=== PATIENT | female | born 1935 | race Caucasian/White ===

== ENCOUNTER 2017-12-08 13:52 | Day surgery (SDC) | payer MEDICARE, BC ==
[~2017-12-08] VITALS: Ht 160 cm; Wt 89.6 kg
[2017-12-08] VITALS (8 sets, daily range): BP systolic 128–139; BP diastolic 57–69
[~2017-12-08 13:52] MED LIST: AMIO200T57 PO; LOSA1TAB39 PO; METF-436 PO; METO-539 PO; POTA8CAP9 PO; RIVA20TA PO; ZOC40T PO
[2017-12-08] MEDS ORDERED: normal saline 1000ml 1,000 ML IV SCH (14:15)
[2017-12-08] MEDS ORDERED: LORazepam 0.5 MG tablet PO PRN (14:15)
[2017-12-08] MEDS ORDERED: diphenhydrAMINE 25mg capsule PO PRN (14:15)
[2017-12-08] MEDS ORDERED: ENOX40SY7 SQ (14:53)
[2017-12-08] MEDS ORDERED: ACET-2119 PO (14:53)
[2017-12-08] MEDS ORDERED: fentaNYL/PF 50MCG/1 ML 2ML syringe ONE (16:03)
[2017-12-08] MEDS ORDERED: midazolam 2 mg/2 ml injection ONE (16:03)
[2017-12-08] MEDS ORDERED: iohexol 350MG/ML 100ml bottle IV ONE (16:03)
[2017-12-08] MEDS ORDERED: LIDOcaine 1% w/EPI 1:100,000 30ml vial (MDV) ONE (16:03)
[2017-12-08] MEDS ORDERED: HYDROcodone/acetaminophen 5mg/325mg tablet PO PRN (17:55)
[2017-12-08] MEDS ORDERED: ondansetron/PF 4mg/2ml inj IV PRN (17:55)
[2017-12-08] MEDS ORDERED: OXAZEpam 15mg capsule PO PRN (17:55)
[2017-12-08] MEDS ORDERED: proCHLORperazine 10 MG/2 ml inj IV PRN (17:55)
[2017-12-08] MEDS ORDERED: HYDROcodone/acetaminophen 10/325mg tab PO PRN (17:55)
== END 2017-12-08 19:45 | disposition home or self-care (01) ==
LOC: SSTAY O 13:52
PROVIDERS: ATTEND Internal Medicine Interventional Cardiology
DX: I25.10 Atherosclerotic heart disease of native coronary artery without angina pectoris (principal); E11.22 Type 2 diabetes mellitus with diabetic chronic kidney disease; I12.9 Hypertensive chronic kidney disease with stage 1 through stage 4 chronic kidney disease, or unspecified chronic kidney disease; N18.3 Chronic kidney disease, stage 3 (moderate); E78.5 Hyperlipidemia, unspecified; I25.2 Old myocardial infarction; G47.33 Obstructive sleep apnea (adult) (pediatric); I08.0 Rheumatic disorders of both mitral and aortic valves; Z79.899 Other long term (current) drug therapy; Z95.5 Presence of coronary angioplasty implant and graft
CPT/HCPCS: 82948; 93005; 93458; 99152; A6257; C1769; J1644; J2250; J3010; J3490; J7030; Q0163; Q9967; A4620

== ENCOUNTER 2018-09-05 04:28 | Emergency (ER) | payer MEDICARE, BC ==
[~2018-09-05] VITALS: Ht 170.2 cm; Wt 90.9 kg
[~2018-09-05 04:28] MED LIST changes: +ACET-2119 PO; +AMIO200T40 PO; -AMIO200T57 PO; +ENOX40SY7 SQ
[2018-09-05] MEDS ORDERED: meclizine 12.5mg tablet PO ONE (04:40)
--- NOTE | 2018-09-05 04:47 | NUR ---
c/o feelings of room spinning and c/o double vision. Adm meclizine. Pt goint to CT
[2018-09-05] MEDS ORDERED: PREG50CA PO (04:50)
--- NOTE | 2018-09-05 04:56 | NUR ---
SPOUSE IS HERE.
[2018-09-05 05:11] LABS: BASOPHILS % (AUTO) 0.5 % (0-1); EOSINOPHILS # (AUTO) 0.2 X10'3 (0-0.9); EOSINOPHILS % (AUTO) 3.3 % (0-6); HEMATOCRIT 38.5 % (35.0-45.0); LYMPHOCYTES # (AUTO) 3.3 X10'3 (1.1-4.8); LYMPHOCYTES % (AUTO) 48.1 % (21-51); MEAN CORPUSCULAR HEMOGLOBIN 32.5 PG (27.0-31.0); MEAN CORPUSCULAR HGB CONC 33.9 g/dL (33.0-36.5); MEAN CORPUSCULAR VOLUME 95.9 FL (78-98); MEAN PLATELET VOLUME 8.3 FL (7.4-10.4); MONOCYTES # (AUTO) 0.5 X10'3 (0-0.9); MONOCYTES % (AUTO) 7.3 % (2-12); NEUTROPHILS # (AUTO) 2.7 X10'3 (1.8-7.7); NEUTROPHILS % (AUTO) 40.8 % (42-75); PLATELET COUNT 227 X10'3 (140-440); RED BLOOD COUNT 4.01 X10'6 (4.20-5.60); RED CELL DISTRIBUTION WIDTH 12.8 % (11.5-14.5); WHITE BLOOD COUNT 6.7 X10'3 (4.5-11.0)
[2018-09-05 05:18] LABS: ALANINE AMINOTRANSFERASE 16 U/L (12-78); ALBUMIN 3.3 G/DL (3.4-5.0); ALBUMIN/GLOBULIN RATIO 0.9 (1.1-1.5); ALKALINE PHOSPHATASE 59 IU/L (46-116); ANION GAP 13 (8-16); ASPARTATE AMINO TRANSFERASE 12 U/L (10-37); BILIRUBIN,TOTAL 0.5 MG/DL (0.1-1.0); BLOOD UREA NITROGEN 29 MG/DL (7-18); BUN/CREATININE RATIO 26.1 (6.6-38.0); CALCIUM 8.7 MG/DL (8.5-10.1); CHLORIDE 104 MMOL/L (99-107); CREATININE 1.11 MG/DL (0.40-0.90); GLUCOSE 185 MG/DL (70-104); POTASSIUM 3.3 MMOL/L (3.5-5.1); SODIUM 140 MMOL/L (135-145); TOTAL CARBON DIOXIDE 23.3 MMOL/L (24-32); TOTAL PROTEIN 6.8 G/DL (6.4-8.2); eGFR 47 ML/MIN
[2018-09-05 05:27] LABS: MAGNESIUM 1.5 MG/DL (1.5-2.4)
[2018-09-05 05:52] VITALS: BP 135/72
--- NOTE | 2018-09-05 05:54 | NUR ---
PT IS UP AMBULATING WITH THE TECH, SHE HAS A NICE STEADY GAIT, BUT C/O DIZZINESS.
[2018-09-05] MEDS ORDERED: ONDA4TAB12 PO (05:58)
[2018-09-05] MEDS ORDERED: MECL12.584 PO (05:58)
== END 2018-09-05 06:24 | disposition home or self-care (01) ==
LOC: ER 04:29
DX: R42 Dizziness and giddiness (principal); H49.9 Unspecified paralytic strabismus; R06.02 Shortness of breath; I25.2 Old myocardial infarction; Z79.84 Long term (current) use of oral hypoglycemic drugs; Z79.899 Other long term (current) drug therapy; Z60.2 Problems related to living alone
CPT/HCPCS: 36415; 70450; 71045; 80053; 83735; 83880; 84484; 85025; 93005; 99284; J8597

== ENCOUNTER 2019-09-12 11:03 | Outpatient (CLI) | payer MEDICARE, BC ==
[~2019-09-12 11:03] MED LIST changes: -AMIO200T40 PO; +AMIO200T61 PO; -ENOX40SY7 SQ; +MECL-184 PO; +ONDA4TAB12 PO; +POTA8CAP20 PO; -POTA8CAP9 PO; +PREG50CA PO
== END 2019-09-12 23:59 | disposition home or self-care (01) ==
LOC: 64 CT 11:03
PROVIDERS: ATTEND Specialist
DX: R91.1 Solitary pulmonary nodule (principal); J98.8 Other specified respiratory disorders; K44.9 Diaphragmatic hernia without obstruction or gangrene; M85.88 Other specified disorders of bone density and structure, other site; M47.814 Spondylosis without myelopathy or radiculopathy, thoracic region
CPT/HCPCS: 71250

== ENCOUNTER 2020-03-07 11:10 | Outpatient (CLI) | payer MEDICARE, BC | END 2020-03-07 23:59 | disposition home or self-care (01) | LOC: 64 CT 11:10 | PROVIDERS: ATTEND Specialist | DX: R91.1 Solitary pulmonary nodule (principal); K44.9 Diaphragmatic hernia without obstruction or gangrene; I48.19 Other persistent atrial fibrillation; Z79.899 Other long term (current) drug therapy | CPT/HCPCS: 71250 ==

== ENCOUNTER 2021-02-25 10:39 | Day surgery (SDC) | payer MEDICARE, BC ==
[2021-02-21 16:50] LABS: BASOPHILS # (AUTO) 0.1 X10'3 (0-0.2); BASOPHILS % (AUTO) 1.3 % (0-1); EOSINOPHILS # (AUTO) 0.2 X10'3 (0-0.9); EOSINOPHILS % (AUTO) 3.6 % (0-6); HEMATOCRIT 36.9 % (35.0-45.0); HEMOGLOBIN 12.3 g/dl (12.0-16.0); LYMPHOCYTES # (AUTO) 1.7 X10'3 (1.1-4.8); LYMPHOCYTES % (AUTO) 27.4 % (21-51); MEAN CORPUSCULAR HEMOGLOBIN 31.9 PG (27.0-31.0); MEAN CORPUSCULAR HGB CONC 33.3 g/dL (33.0-36.5); MEAN CORPUSCULAR VOLUME 95.6 FL (78-98); MEAN PLATELET VOLUME 8.7 FL (7.4-10.4); MONOCYTES # (AUTO) 0.6 X10'3 (0-0.9); NEUTROPHILS # (AUTO) 3.6 X10'3 (1.8-7.7); NEUTROPHILS % (AUTO) 57.7 % (42-75); PLATELET COUNT 258 X10'3 (140-440); RED BLOOD COUNT 3.86 X10'6 (4.20-5.60); RED CELL DISTRIBUTION WIDTH 14.8 % (11.5-14.5); WHITE BLOOD COUNT 6.3 X10'3 (4.5-11.0)
[2021-02-21 16:56] LABS: ALBUMIN 3.8 G/DL (3.4-5.0); ANION GAP 6 (8-16); BLOOD UREA NITROGEN 34 MG/DL (7-18); BUN/CREATININE RATIO 20.1 (6.6-38.0); CALCIUM 9.2 MG/DL (8.5-10.1); CHLORIDE 104 MMOL/L (99-107); CREATININE 1.69 MG/DL (0.40-0.90); GLUCOSE 86 MG/DL (70-104); POTASSIUM 3.9 MMOL/L (3.5-5.1); SODIUM 142 MMOL/L (135-145); TOTAL CARBON DIOXIDE 31.7 MMOL/L (24-32); eGFR 29 ML/MIN
[2021-02-21 16:58] LABS: PARTIAL THROMBOPLASTIN TIME 31 SECONDS (22-32)
[2021-02-25] VITALS (10 sets, daily range): BP systolic 103–127; BP diastolic 43–64
[~2021-02-25] VITALS: Ht 160 cm; Wt 82.1 kg
[~2021-02-25 10:39] MED LIST changes: -ACET-2119 PO; +ALBU8.5H17 INH; +AMLO5TAB PO; +GLIM4TAB PO; +HYDR25TA5 PO; -MECL-184 PO; -ONDA4TAB12 PO; +ZOLP6.2539 PO
[2021-02-25] MEDS ORDERED: LEVO25TA2 PO (11:10)
[2021-02-25] MEDS ORDERED: BETA1TAB20 PO (11:10)
[2021-02-25] MEDS ORDERED: normal saline 1000ml 1,000 ML IV SCH (11:10)
[2021-02-25] MEDS ORDERED: MIDAZolam 1mg/ml 10ml vial IV ONE (11:10)
[2021-02-25] MEDS ORDERED: fentaNYL/PF 50MCG/1 ML 2ML syringe IV ONE (11:10)
[2021-02-25] MEDS ORDERED: FURO40TA4 PO (11:10)
== END 2021-02-25 13:55 | disposition home or self-care (01) ==
LOC: SSTAY O 10:39
PROVIDERS: ATTEND Internal Medicine Interventional Cardiology
DX: I48.19 Other persistent atrial fibrillation (principal); I25.10 Atherosclerotic heart disease of native coronary artery without angina pectoris; G47.33 Obstructive sleep apnea (adult) (pediatric); I25.2 Old myocardial infarction; E11.22 Type 2 diabetes mellitus with diabetic chronic kidney disease; I13.0 Hypertensive heart and chronic kidney disease with heart failure and stage 1 through stage 4 chronic kidney disease, or unspecified chronic kidney disease; I50.9 Heart failure, unspecified; N18.9 Chronic kidney disease, unspecified; I08.0 Rheumatic disorders of both mitral and aortic valves; E78.5 Hyperlipidemia, unspecified; Z95.0 Presence of cardiac pacemaker; Z95.5 Presence of coronary angioplasty implant and graft; Z79.899 Other long term (current) drug therapy
CPT/HCPCS: 36415; 80048; 82948; 85025; 85610; 85730; 92960; 93005; 94760; 94799; J2250; J3010; J7030